=== PATIENT | male | born 1985 | race Caucasian/White ===

== ENCOUNTER 2016-09-01 16:41 | Emergency (ER) | payer SELFPAY ==
[~2016-09-01] VITALS: Ht 177.8 cm; Wt 90.0 kg
[~2016-09-01 16:41] MED LIST: ALBU0.08 NEB; AZIT250T3 PO; BACT800T5 PO; CLIN1CAP6 PO; IPRA0.02 NEB; PRED20 PO; SYMB160A INH
[2016-09-01 16:42] VITALS: BP 149/83; PULSE 104; RESP 20; TEMP 98; O2SAT 98
[2016-09-01] MEDS ORDERED: IBUP800T23 PO (18:44)
[2016-09-01] MEDS ORDERED: CEPH-460 PO (18:44)
[2016-09-01] MEDS ORDERED: BACT800T5 PO (18:44)
--- NOTE | 2016-09-01 18:44 | PD ---
HPI Chief Complaint: Skin Problem Time Seen by Provider: 18:41 Travel History International Travel<30 days: No Contact w/Intl Traveler<30days: No Traveled to known affect area: No History of Present Illness HPI 31-year-old male presents to the emergency department with complaint of erythema and tenderness to his skin of his right lower abdomen since Tuesday. He said he started out looking like a pimple which opened up and drained and has gotten worse since. He denies fever, chills, nausea, vomiting. He has not taken any medications or tried any treatments to be dazed symptoms. 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 He does have penicillin allergy. No other modifying factors or associated signs and symptoms. PFSH Past Medical History Asthma: Yes Cancer: No Cardiovascular Problems: No COPD: No Diabetes: No Diminished Hearing: No Endocrine: No Genitourinary: No Immune Disorder: No Neurologic: No Psychiatric: No Reproductive: No Respiratory: Yes (RESOLVED/CHILDHOOD) Immunizations Current: Yes Sleep Apnea: No Past Surgical History Tympanostomy Tube: Yes Other Surgery: No Social History Alcohol Use: Yes (Occasional ) Tobacco Use: Yes (1 PPD) Substance Use: Yes (Marijuana "rarely") Allergies-Medications (Allergen,Severity, Reaction): Coded Allergies: Penicillin (Verified Allergy, Severe, UNKNOWN REACTION, 06/29/16) *MDRO Multi-Drug Resistant Organism (Verified Adverse Reaction, Unknown, 06/29/16) MRSA (knee-02/23/16 & scrotum-06/24/16) Reported Meds & Prescriptions Reported Meds & Active Scripts Active Ibuprofen 800 Mg Tab 800 Mg PO Q6HR PRN Bactrim DS (Sulfamethoxazole-Trimethoprim) 800-160 Mg Tab 1 Tab PO BID 10 Days Keflex (Cephalexin) 500 Mg Cap 500 Mg PO Q6H 10 Days Clindamycin (Clindamycin HCl) 300 Mg Cap 300 Mg PO Q6H 10 Days Bactrim DS (Sulfamethoxazole-Trimethoprim) 800-160 Mg Tab 1 Tab PO BID Azithromycin 250 Mg Tab 250 Mg PO DAILY Prednisone 20 Mg Tab 20 Mg PO BID Ipratropium Neb (Ipratropium Wentworth) 0.5 Mg/2.5 Ml Amp 0.5 Mg NEB Q6HR NEB Albuterol Neb (Albuterol Sulfate) 2.5 Mg/3 Ml Neb 2.5 Mg NEB QID NEB Symbicort Inh (Budesonide/Formoterol Fumarate) 160-4.5 Mcg/Act Aero 2 Puff INH Q12HR 30 Days Review of Systems Except as stated in HPI: all other systems reviewed are Neg Physical Exam Narrative GENERAL: Well-nourished, well-developed male patient, in no acute distress SKIN: There is an indurated area to the right lower abdomen at approximately the waist line which measures about 3 cm in diameter. It is nonfluctuant and there is no pointing or drainage. There is a zone of inflammation around it but no lymphangitis. HEAD: Atraumatic. Normocephalic. EYES: Pupils equal and round. No scleral icterus. No injection or drainage. ENT: Mucosa pink and moist. Airway patent. NECK: Trachea midline. CARDIOVASCULAR: Regular rate. RESPIRATORY: No accessory muscle use. GASTROINTESTINAL: Rounded. MUSCULOSKELETAL: No obvious deformities. No clubbing. No cyanosis. No edema. NEUROLOGICAL: Awake and alert. Oriented 3. No obvious cranial nerve deficits. Motor grossly within normal limits. Normal speech. PSYCHIATRIC: Appropriate mood and affect; insight and judgment normal. Data Data Last Documented VS Vital Signs Date Time Temp Pulse Resp B/P Pulse Ox O2 Delivery O2 Flow Rate FiO2 09/01/16 16:42 98.0 104 20 149/83 98 Room Air MDM Medical Decision Making Medical Screen Exam Complete: Yes Emergency Medical Condition: Yes Medical Record Reviewed: Yes Differential Diagnosis Cellulitis, abscess, folliculitis Narrative Course 31-year-old male is exam consistent with cellulitis of the right lower abdominal wall. The area is nonfluctuant and without pointing or drainage. No incision and drainage needed at this time. Patient is allergic to penicillin. He has taken Keflex and Bactrim in the past for similar symptoms. Patient is afebrile and nontoxic-appearing. He denies fever, chills, nausea, vomiting. Heart rate on reexamination is approximately 90 bpm. Area of cellulitis marked with a surgical marker. Keflex, Bactrim, ibuprofen prescribed for home. Patient is medically cleared and stable for discharge. Discussed reasons to return to the emergency department. Instructed patient to follow up with primary care provider. Patient agrees with treatment plan. The patients vital signs are stable and the patient is stable for outpatient follow-up and treatment. Patient discharged home, stable and in no acute distress. Diagnosis Primary Impression: Cellulitis of right abdominal wall Referrals: Primary Care Physician Patient Instructions: Cellulitis (ED), General Instructions Departure Forms: Tests/Procedures, Work Release Enter return to work date: Sep 02, 2016 Additional Instructions: Complete full course of antibiotics Warm compresses to the affected area Keep area clean and dry Ibuprofen or Tylenol as directed and as needed for pain and inflammation Follow-up with primary care provider Return to emergency department immediately with worsening of symptoms Med/Other Pt SpecificInfo: Prescription(s) given Scripts Ibuprofen 800 Mg Qpd011 Mg PO Q6HR PRN (PAIN) #30 TAB Ref 0 Prov:Lois Reyes 09/01/16 Sulfamethoxazole-Trimethoprim (Bactrim DS)800-160 Mg Tab1 Tab PO BID 10 Days Ref 0 Prov:Lois Reyes 09/01/16 Cephalexin (Keflex)500 Mg [id number] Mg PO Q6H 10 Days Ref 0 Prov:Lois Reyes 09/01/16 Disposition: 01 DISCHARGE HOME Condition: Stable Lois Reyes Sep 01, 2016 18:44
== END 2016-09-01 18:56 | disposition home or self-care (01) ==
LOC: NED 16:41 → NEPB 18:56
DX: L03.311 Cellulitis of abdominal wall (principal)
CPT/HCPCS: 99282

== ENCOUNTER 2016-11-03 20:58 | Emergency (ER) | payer SELFPAY ==
[~2016-11-03] VITALS: Ht 175.3 cm; Wt 94.7 kg
[~2016-11-03 20:58] MED LIST changes: +CEPH-460 PO; +IBUP800T23 PO
[2016-11-03 21:13] VITALS: BP 149/90; PULSE 92; RESP 18; TEMP 98.4; O2SAT 96
[2016-11-03] MEDS ORDERED: BACT800T5 PO (21:29)
--- NOTE | 2016-11-03 21:30 | PD ---
HPI Chief Complaint: Skin Problem Time Seen by Provider: 21:29 Travel History International Travel<30 days: No Contact w/Intl Traveler<30days: No Traveled to known affect area: No History of Present Illness HPI 31-year-old male presents to the emergency department for evaluation of tender bumps to posterior scalp for 3 days. Patient states that he noticed a little bump there on Tuesday and accidentally has been picking at it a few times and it has been getting larger. States there are now 2 bumps. States that he is concerned as he has a history of MRSA and has had previous abscesses in the past. He denies any fever, chills, nausea, vomiting, discharge or drainage from the site. States that he already bathes with antibacterial body wash. No other complaints. PFSH Past Medical History Asthma: Yes Cancer: No Cardiovascular Problems: No COPD: No Diabetes: No Diminished Hearing: No Endocrine: No Genitourinary: No Immune Disorder: No Neurologic: No Psychiatric: No Reproductive: No Respiratory: Yes (RESOLVED/CHILDHOOD) Immunizations Current: Yes Sleep Apnea: No ?: Not Past Surgical History Tympanostomy Tube: Yes Other Surgery: No Social History Alcohol Use: Yes (Occasional ) Tobacco Use: Yes (1 PPD) Substance Use: Yes (Marijuana "rarely") Allergies-Medications (Allergen,Severity, Reaction): Coded Allergies: Penicillin (Verified Allergy, Severe, UNKNOWN REACTION, 11/03/16) *MDRO Multi-Drug Resistant Organism (Verified Adverse Reaction, Unknown, ) MRSA (knee-02/23/16 & scrotum-06/24/16) Reported Meds & Prescriptions Reported Meds & Active Scripts Active Bactrim DS (Sulfamethoxazole-Trimethoprim) 800-160 Mg Tab 1 Tab PO BID Review of Systems Except as stated in HPI: all other systems reviewed are Neg Physical Exam Narrative GENERAL: Well-nourished and well-developed pleasant male patient in no acute distress who is nontoxic appearing. SKIN: Warm and dry. Posterior scalp with 2 small erythematous raised lesions with tenderness to palpation, no fluctuance, no discharge or drainage. Less than 1 cm each. HEAD: Normocephalic and atraumatic. EYES: No injection, drainage, or hyphema noted. PERRLA. EOMI. ENT: No nasal drainage noted. Oropharynx is clear. NECK: Supple and the trachea is midline. CARDIOVASCULAR: Regular rate and rhythm. RESPIRATORY: Breath sounds are equal bilaterally with no accessory muscle use, wheezing, rhonchi, or crackles. NEUROLOGICAL: Awake, alert, and oriented. Normal speech and gait. Cranial nerves are grossly intact. Data Data Last Documented VS Vital Signs Date Time Temp Pulse Resp B/P Pulse Ox O2 Delivery O2 Flow Rate FiO2 11/03/16 21:13 98.4 92 18 149/90 96 MDM Medical Decision Making Medical Screen Exam Complete: Yes Emergency Medical Condition: Yes Differential Diagnosis Folliculitis versus abscess versus furuncle Narrative Course 31-year-old male presents to the emergency department for evaluation of skin lesions to posterior scalp. Patient is afebrile, vital signs are stable. He does have a history of MRSA and previous abscesses. I reviewed his prior cultures which showed sensitivity to Bactrim. Patient will be placed on Bactrim. Discussed supportive care. Advised follow-up with his PCP. Patient verbalizes understanding and agreement with treatment plan. Diagnosis Primary Impression: Folliculitis Additional Impression: Hx MRSA infection Referrals: Primary Care Physician Patient Instructions: Folliculitis (ED), General Instructions Additional Instructions: Apply warm compresses. Take medication as prescribed with food and a full glass of water. Follow-up with your Primary Care Physician. Return to the ED for any acute worsening of symptoms. Med/Other Pt SpecificInfo: Prescription(s) given Scripts Sulfamethoxazole-Trimethoprim (Bactrim DS)800-160 Mg Tab1 Tab PO BID #20 TAB Ref 0 Prov:Ac Brown MD 11/03/16 Disposition: 01 DISCHARGE HOME Condition: Stable Lois Humphrey November 03, 2016 21:30
== END 2016-11-03 21:39 | disposition home or self-care (01) ==
LOC: PHEFT 20:58
DX: L73.9 Follicular disorder, unspecified (principal); J45.909 Unspecified asthma, uncomplicated; F17.210 Nicotine dependence, cigarettes, uncomplicated; Z86.14 Personal history of Methicillin resistant Staphylococcus aureus infection
CPT/HCPCS: 99282

== ENCOUNTER 2016-12-21 18:58 | Emergency (ER) | payer SELFPAY ==
[~2016-12-21] VITALS: Ht 175.3 cm; Wt 96.0 kg
[~2016-12-21 18:58] MED LIST changes: -ALBU0.08 NEB; -AZIT250T3 PO; -CEPH-460 PO; -CLIN1CAP6 PO; -IBUP800T23 PO; -IPRA0.02 NEB; -PRED20 PO; -SYMB160A INH
[2016-12-21 19:06] VITALS: BP 129/81; PULSE 94; RESP 18; TEMP 98.5; O2SAT 98
[2016-12-21] MEDS ORDERED: MUPI2OIN TOPICAL (19:47)
--- NOTE | 2016-12-21 19:50 | PD ---
HPI Chief Complaint: Skin Problem Time Seen by Provider: 19:35 Travel History International Travel<30 days: No Contact w/Intl Traveler<30days: No Traveled to known affect area: No History of Present Illness HPI 31-year-old male presents to the emergency room for evaluation of recurring folliculitis to his posterior scalp. Patient states approximately every other month he develops small, painful abscesses for which he takes Bactrim. The Bactrim resolves his symptoms. The bumps never go away but the pain and redness subsided periodically. States he has been following recommendations such as multiple showers, no hat use, and changing his shirt several times daily but it doesn't seem to be helping. He denies systemic signs of infection. PFSH Past Medical History Asthma: Yes Cancer: No Cardiovascular Problems: No COPD: No Diabetes: No Diminished Hearing: No Endocrine: No Genitourinary: No Immune Disorder: No Neurologic: No Psychiatric: No Reproductive: No Respiratory: Yes (RESOLVED/CHILDHOOD) Immunizations Current: Yes Sleep Apnea: No Past Surgical History Tympanostomy Tube: Yes Other Surgery: No Social History Alcohol Use: Yes (Occasional ) Tobacco Use: Yes (1 PPD) Substance Use: Yes (Marijuana "rarely") Allergies-Medications (Allergen,Severity, Reaction): Coded Allergies: Penicillin (Verified Allergy, Severe, UNKNOWN REACTION, 11/03/16) *MDRO Multi-Drug Resistant Organism (Verified Adverse Reaction, Unknown, ) MRSA (knee-02/23/16 & scrotum-06/24/16) Reported Meds & Prescriptions Reported Meds & Active Scripts Active Mupirocin Topical (Mupirocin) 2 % Oint 1 Applic TOPICAL TID Review of Systems Except as stated in HPI: all other systems reviewed are Neg Physical Exam Narrative GENERAL: Well-nourished, well-developed male in no acute distress. Afebrile. Ambulatory. SKIN: Focused skin assessment warm/dry. There are 3 indurated areas in the posterior scalp which measure about 0.5 cm in diameter. It is fluctuant but there is no pointing or drainage. No inflammation or lymphangitis. HEAD: Normocephalic. EYES: No scleral icterus. No injection or drainage. NECK: Supple, trachea midline. No JVD or lymphadenopathy. CARDIOVASCULAR: Regular rate and rhythm without murmurs, gallops, or rubs. RESPIRATORY: Breath sounds equal bilaterally. No accessory muscle use. PSYCHIATRIC: No delusional thought processes. No hallucinations. Data Data Last Documented VS Vital Signs Date Time Temp Pulse Resp B/P Pulse Ox O2 Delivery O2 Flow Rate FiO2 12/21/16 19:06 98.5 94 18 129/81 98 [facility] Medical Decision Making Medical Screen Exam Complete: Yes Emergency Medical Condition: Yes Medical Record Reviewed: Yes Differential Diagnosis Folliculitis, abscess, MRSA, cellulitis Narrative Course 31-year-old male presents to the emergency room for evaluation of recurrent folliculitis to his posterior scalp. Patient states he has history of MRSA and develops symptoms every few months but they always go away with Bactrim. He is requesting prescription for Bactrim today. Physical exam reveals 3 small abscesses without surrounding inflammation or lymphangitis. No indication for incision and drainage. Patient was counseled on the effects of frequent antibiotic use and the concern for resistant. He was offered topical medication. He was also instructed to apply medication intranasally to treat MRSA colonization to hopefully prevent future outbreaks. Patient was discharged with mupirocin and told to follow-up with a regulatory compliance officer or return for worsening symptoms. He understands and agrees to plan. Diagnosis Primary Impression: Folliculitis Referrals: [employer] Primary Care Physician Patient Instructions: Folliculitis (ED), General Instructions Additional Instructions: Rest and drink plenty of fluids. Instill ointment into both nostrils every morning and night for 5 days. Do not cross contaminate. Use a clean Q-tip for every application. Apply to affected area 3 times daily for 10 days. Apply warm compresses to the affected areas. Follow-up with a primary care physician. Return to the emergency room for worsening symptoms. Med/Other Pt SpecificInfo: Prescription(s) given Scripts Mupirocin Topical 2 % Oint1 Applic TOPICAL TID #22 GM Ref 0 Prov:Shana Welch MD 12/21/16 Disposition: 01 DISCHARGE HOME Condition: Stable Alysia Vaughn Dec 21, 2016 19:50
== END 2016-12-21 19:54 | disposition home or self-care (01) ==
LOC: PHEFT 18:58
DX: L73.9 Follicular disorder, unspecified (principal); F17.210 Nicotine dependence, cigarettes, uncomplicated; Z86.14 Personal history of Methicillin resistant Staphylococcus aureus infection
CPT/HCPCS: 99283